=== PATIENT | female | born 1980 | race Caucasian/White ===

== ENCOUNTER 2022-01-03 18:23 | Emergency (ER) | payer BC ==
[~2022-01-03] VITALS: Ht 160 cm; Wt 52.6 kg
[2022-01-03] MEDS ORDERED: IV NORMAL SALINE 1000 ML BAG IV ONE (19:00)
[2022-01-03] MEDS ORDERED: ONDANSETRON 4 MG/2 ML VIAL IV ONE ×2 (19:30→21:15)
[2022-01-03] MEDS ORDERED: ONDANSETRON 4 MG/2 ML VIAL ONE ×2 (19:37→21:17)
[2022-01-03 19:41] LABS: HEMATOCRIT 40.3 % (31.2-41.9); MEAN CORPUSCULAR HEMOGLOBIN 29.8 uug (24.7-32.8); MEAN CORPUSCULAR VOLUME 86.8 fL (75.5-95.3); PLATELET COUNT (AUTO) 172 K/uL (179-408)
[2022-01-03 19:57] LABS: BILIRUBIN,DIRECT 0.2 mg/dL (0.0-0.2); CREATININE 0.6 mg/dL (0.6-1.3); POTASSIUM 3.7 mmol/L (3.5-5.1); TOTAL PROTEIN, SERUM 6.8 g/dL (6.4-8.2)
[2022-01-03] MEDS ORDERED: PIPERACILLIN SODIUM/TAZOBACTAM 3.375 G in IV DEXTROSE 5% 50 ML IV ONE (20:00)
[2022-01-03] MEDS ORDERED: PIPERACILLIN/TAZOBACTAM/D5W 50 ML IV ONE (20:15)
[2022-01-03] MEDS ORDERED: IV NS 1000 ML 1,000 ML IV ONE (20:30)
[2022-01-03] MEDS ORDERED: PRUC2TAB PO (21:32)
[2022-01-03 21:33] LABS: *BILIRUBIN,URIN 1+ (NEGATIVE); *BLOOD, URINE NEGATIVE (NEGATIVE); *COLOR,URINE AMBER (YELLOW); *KETONES,URINE 4+ (NEGATIVE); *UROBILINOGEN,URINE 0.2 E.U./dl (NORMAL); LEUKOCYTE ESTERASE ,URINE NEGATIVE (NEGATIVE); NITRITE, URINE NEGATIVE (NEGATIVE); UGLUCOSE NEGATIVE (NEGATIVE)
[2022-01-03 21:35] LABS: *CLARITY,URINE HAZY (CLEAR)
[2022-01-03 21:43] LABS: BACTERIA,URINE NONE SEEN /HPF (NONE SEEN); SQUAMOUS EPITHELIAL CELL,UR MODERATE /HPF (NONE SEEN); WBC,URINE 0-3 /HPF (0-3)
[2022-01-03] MEDS ORDERED: FAMOTIDINE. 20 MG/2 ML VIAL IV ONE ×2 (23:10→23:15)
[2022-01-03] MEDS ORDERED: ONDA4TAB11 PO (23:19)
[2022-01-03] MEDS ORDERED: FAMO-132 PO (23:19)
[2022-01-03 23:36] VITALS: BP 115/68
== END 2022-01-03 23:36 | disposition left against medical advice (07) ==
LOC: ER 18:30
DX: R55 Syncope and collapse (principal); E86.0 Dehydration; D72.810 Lymphocytopenia; Z20.822 Contact with and (suspected) exposure to COVID-19; R00.0 Tachycardia, unspecified; D69.6 Thrombocytopenia, unspecified
CPT/HCPCS: 36415; 76856; 83605; 83690; 85025; 87400; 93005; A4663; J2405; J2543; J3490; J7040